=== PATIENT | female | born 1970 | race Caucasian/White ===

== ENCOUNTER → 2018-09-04 | Outpatient (CLI) | payer MEDICAID, SELFPAY ==
[2017-05-11 15:49] VITALS: BMI 27.4
[2018-09-11 16:42] LABS: HPV Reflexed? NOT INDICATED
== END | disposition home or self-care (01) ==
PROVIDERS: Referring Provider Obstetrics & Gynecology; Visit Provider Obstetrics & Gynecology
DX: Z12.4 Encounter for screening for malignant neoplasm of cervix (principal)
CPT/HCPCS: 87624; 88175; G0145

== ENCOUNTER → 2019-10-04 13:13 | Outpatient (CLI) | payer MEDICAID, SELFPAY ==
--- NOTE | 2019-10-04 13:24 | BI_ITS ---
MAMMOGRAPHY - BILATERAL DIAGNOSTIC REASON FOR EXAM: Female, 49 years old. Left inferior breast lump for 2 weeks. PERTINENT HISTORY: Mother with breast cancer. TECHNIQUE: Digital bilateral breast esdras (3D mammographic acquisition) in the CC and MLO projections. 2-D mediolateral oblique (MLO) and craniocaudad (CC) views of both breasts were obtained. CAD: Full Field Digital Mammography with Computer Added Detection was performed. COMPARISON: Comparison is made with prior examination dated February 09, 2017. FINDINGS: Breast Composition: The breasts are heterogeneously dense, which may obscure small masses. There are no dominant masses or suspicious calcifications. Stable benign-appearing bilateral axillary lymph nodes. No other significant abnormalities are identified. There has been no significant change since the prior study. BI/DIAG MAMM W/CAD, BILAT IMPRESSION: Stable bilateral diagnostic mammogram. With the patient''s history of a palpable lump in the left breast, correlation with ultrasound is recommended. ASSESSMENT CATEGORY: BIRADS Category 0: Incomplete. Need additional imaging evaluation. A letter regarding these results will be sent to the patient by the facility within 30 days. Approximately 10% of breast cancers are not detected by mammography. A normal mammogram should not delay biopsy of a clinically suspicious abnormality. Electronically Signed: Emiliano Basilio, at 15:02 EDT , Service support ,
--- NOTE | 2019-10-04 13:24 | US_ITS ---
STUDY: ULTRASOUND BREAST - LEFT REASON FOR EXAM: Female, 49 years old. Left breast lump. TECHNIQUE: Axial and longitudinal images of the LEFT breast were performed with a high resolution ultrasound transducer. # OF IMAGES: 31 COMPARISON: Comparison is made with prior mammogram done earlier today as well as prior left breast ultrasound dated May 16, 2017. FINDINGS: LEFT Breast: The inferior aspect of the left breast was examined by ultrasound. No sonographic abnormality is seen. US/Breast Limited Unilateral IMPRESSION: No sonographic abnormality is seen. ASSESSMENT CATEGORY: BIRADS Category 1: Negative. A letter regarding these results will be sent to the patient by the facility within 30 days. Electronically Signed: Emiliano Basilio, at 15:34 EDT , Service support ,
== END ==
PROVIDERS: PCP Physician Assistant; Referring Provider Physician Assistant; Visit Provider Physician Assistant
DX: N63.20 Unspecified lump in the left breast, unspecified quadrant (principal); Z80.3 Family history of malignant neoplasm of breast
CPT/HCPCS: 76642; 77062; 77066; G0279

== ENCOUNTER → 2020-05-13 | Outpatient (CLI) | payer MEDICAID, SELFPAY ==
[2017-05-11 15:49] VITALS: BMI 27.4
[2020-05-18 13:44] LABS: HPV Reflexed? NOT INDICATED
== END | disposition home or self-care (01) ==
LOC: LABSPEC 14:36
PROVIDERS: PCP Physician Assistant; Visit Provider Obstetrics & Gynecology
DX: Z12.4 Encounter for screening for malignant neoplasm of cervix (principal)
CPT/HCPCS: 88175; G0145

== ENCOUNTER → 2022-06-02 | Outpatient (CLI) | payer OTHER, MEDICAID, SELFPAY ==
--- NOTE | 2022-06-02 10:40 | EMB_PTH ---
PATIENT: FRANKIE LIMON LOC: LAB U#:[id number] AGE/SX: 51/F ROOM: RE06/02/[address]: Dr. Reji Gonzáles MD : 1970 BED: DIS: 06/02/2022 SPEC #: [id number] RECD: 06/02/22 13:32 STATUS: RUBI REKamila #: [id number] LOTTIE: 06/02/22 10:[address]: Reji Gonzáles DEPT: SURGICAL PATHOLOGY RECD BY: Deisy Ruelas ENTERED: 06/02/22 13:49 SP TYPE: ENDOM BX/C PAIGE DR: UMM Carrillo Tissues: Endometrium, NOS Procedures: Surgery Specimen Level IV HEADER OPERATION: Endometrial biopsy PRE-OP DIAGNOSIS: N92.6 TISSUE SUBMITTED: Endometrial biopsy MICROSCOPIC DIAGNOSIS Endometrial biopsy: Proliferative endometrium. SJ:aury 06/03/2022 MICROSCOPIC DESCRIPTION Slides are reviewed. GROSS DESCRIPTION Received in fixative is one container labeled with the patient's name and designated endometrial biopsy. The specimen consists of multiple fragments of pink hemorrhagic soft tissue that in aggregate measure 2.5 x 1.2 x 0.2 cm. The specimen is totally submitted in one cassette. / SJ:aury 06/02/2022 TC:4 CPT: 71889
[2022-06-02 13:22] LABS: Estradiol 270.3 pg/mL; Follicle Stimulating Hormone 12.4 mIU/mL; T4 Free Direct 0.92 ng/dL (0.76-1.46); Thyroid Stim Hormone (TSH) 0.65 uIU/mL (0.358-3.74)
== END | disposition home or self-care (01) ==
PROVIDERS: PCP Physician Assistant; Visit Provider Obstetrics & Gynecology
DX: N93.9 Abnormal uterine and vaginal bleeding, unspecified (principal); N92.6 Irregular menstruation, unspecified
CPT/HCPCS: 36415; 82670; 83001; 83002; 84439; 84443; 88305